=== PATIENT | male | born 1965 | race American Indian/Alaskan Native ===

== ENCOUNTER 2017-01-13 03:19 | Emergency (ER) | payer OTHER ==
[2017-01-13 03:41] VITALS: BMI 37.6
[2017-01-13 03:53] VITALS: BP 132/92; PULSE 109; RESP 18; TEMP 97.5; O2SAT 97
--- NOTE | 2017-01-13 04:02 | ED PDOC ---
Arrival/HPI - General Chief Complaint: Cough, Cold, Congestion Time Seen by Provider: 01/13/17 04:02 Historian: Patient - History of Present Illness Narrative History of Present Illness (Text): 01/13/17 04:02 Ryan Hahn is a 51 year old male who presents to the Emergency department complaining of sinus/nasal congestion with associated rhinorrhea since yesterday morning. Patient denies any fever, chills, chest pain, shortness of breath, nausea, vomiting, headache, dizziness, or any other complaints. Time/Duration: Other (yesterday morning) Symptom Onset: Gradual Symptom Course: Unchanged Activities at Onset: Light Context: Home Past Medical History - Provider Review Nursing Documentation Reviewed: Yes - Cardiac Hx Cardiac Disorders: Yes Hx Hypertension: Yes - Pulmonary Hx Respiratory Disorders: No - Neurological Hx Neurological Disorder: No - HEENT Other/Comment: hx nasal infection - Renal Hx Renal Disorder: No - Endocrine/Metabolic Hx Endocrine Disorders: Yes Other/Comment: pre-diabetic - Hematological/Oncological Hx Blood Disorders: No - Integumentary Hx Dermatological Disorder: No - Musculoskeletal/Rheumatological Hx Musculoskeletal Disorders: No - Gastrointestinal Hx Gastrointestinal Disorders: No - Genitourinary/Gynecological Hx Genitourinary Disorders: No - Psychiatric Hx Psychophysiologic Disorder: No Hx Substance Use: No - Surgical History Other/Comment: cyst taken out at the back - Anesthesia Hx Anesthesia: Yes Hx Anesthesia Reactions: No Hx Malignant Hyperthermia: No Family/Social History - Physician Review Nursing Documentation Reviewed: Yes Family/Social History: Unknown Family HX Smoking Status: Light Smoker < 10 Cigarettes Daily Hx Alcohol Use: Yes Frequency of alcohol use: Socially Hx Substance Use: No Allergies/Home Meds Allergies/Adverse Reactions: Allergies house dust Allergy (Verified 01/13/17 03:47) ITCHING Review of Systems - Physician Review All systems were reviewed & negative as marked: Yes - Review of Systems Constitutional: Normal. absent: Fevers Eyes: Normal ENT: Rhinorrhea, Sinus Congestion Respiratory: Normal. absent: SOB, Cough Cardiovascular: Normal. absent: Chest Pain Gastrointestinal: Normal. absent: Abdominal Pain, Diarrhea, Nausea, Vomiting Genitourinary Male: Normal. absent: Dysuria, Frequency, Hematuria, Urinary Output Changes Musculoskeletal: Normal. absent: Back Pain, Neck Pain Skin: Normal. absent: Rash Neurological: Normal. absent: Headache, Dizziness Endocrine: Normal Hemo/Lymphatic: Normal Psychiatric: Normal Physical Exam Vital Signs Reviewed: Yes Vital Signs Temp Pulse Resp BP Pulse Ox 01/13/17 03:52 97.5 F L 109 H 18 132/92 H 97 Temperature: Afebrile Blood Pressure: Normal Pulse: Regular Respiratory Rate: Normal Appearance: Positive for: Well-Appearing, Non-Toxic, Comfortable Pain Distress: None Mental Status: Positive for: Alert and Oriented X 3 - Systems Exam Head: Present: Atraumatic, Normocephalic, Tenderness (Maxillary sinus tenderness ) Pupils: Present: PERRL Extroacular Muscles: Present: EOMI Conjunctiva: Present: Normal Ears: Present: Normal, NORMAL TM, Normal Canal. No: Erythema, TM Bulging, Fluid , TM Perf Mouth: Present: Moist Mucous Membranes, Normal Tounge Pharnyx: No: ERYTHEMA, EXUDATE, TONSILS ENLARGED, Peritonsilar Swelling, Uvular Deviation, Muffled/Hoarse Voice, Strider, Soft Palate/Uvular Edema Nose (Internal): Present: Rhinorrhea (Nasal congestion/nasal discharge) Neck: Present: Normal Range of Motion Respiratory/Chest: Present: Clear to Auscultation, Good Air Exchange. No: Respiratory Distress, Accessory Muscle Use Cardiovascular: Present: Regular Rate and Rhythm, Normal S1, S2. No: Murmurs Abdomen: Present: Normal Bowel Sounds. No: Tenderness, Distention, Peritoneal Signs Upper Extremity: Present: Normal Inspection. No: Cyanosis, Edema Lower Extremity: Present: Normal Inspection. No: Edema Neurological: Present: GCS=15, CN II-XII Intact, Speech Normal Skin: Present: Warm, Dry, Normal Color. No: Rashes Psychiatric: Present: Alert, Oriented x 3, Normal Insight, Normal Concentration Medical Decision Making ED Course and Treatment: 01/13/17 04:02 Impression: 51 year old male complaining of nasal/sinus congestion and runny nose since yesterday morning. Differential Diagnosis included but are not limited to: sinusitis vs. URI Plan: -- Augmentin -- Sudafed -- Reassess and disposition Progress Notes: 01/13/17 04:35 On re-evaluation, patient feels better and is in no acute distress. Patient in agreement with plan to be discharged home. Patient is stable for discharge. Patient was instructed to follow up with physician or return if symptoms worsen or new concerning symptoms arise. - Medication Orders Current Medication Orders: Discontinued Medications Amoxicillin/Clavulanate Potassium (Augmentin 875 Mg-125 Mg Tab) 1 tab PO ONCE STA PRN Reason: Protocol Stop: 01/13/17 04:36 Last Admin: 01/13/17 04:49 Dose: 1 tab Pseudoephedrine HCl (Sudafed Tab) 30 mg PO ONCE ONE Stop: 01/13/17 04:37 Last Admin: 01/13/17 04:49 Dose: 30 mg - Scribe Statement The provider has reviewed the documentation as recorded by the Neymar Monge Provider Scribe Attestation: All medical record entries made by the Warneribnoemi were at my direction and personally dictated by me. I have reviewed the chart and agree that the record accurately reflects my personal performance of the history, physical exam, medical decision making, and the department course for this patient. I have also personally directed, reviewed, and agree with the discharge instructions and disposition. Disposition/Present on Arrival - Present on Arrival Any Indicators Present on Arrival: No History of DVT/PE: No History of Uncontrolled Diabetes: No Urinary Catheter: No History of Decub. Ulcer: No History Surgical Site Infection Following: None - Disposition Have Diagnosis and Disposition been Completed?: Yes Diagnosis: Sinusitis, URI (upper respiratory infection) Disposition: HOME/ ROUTINE Disposition Time: 04:38 Patient Plan: Discharge Patient Problems: Current Active Problems Problem Status Onset Sinusitis Acute URI (upper respiratory infection) Acute Condition: GOOD Discharge Instructions (ExitCare): Sinusitis (ED), Upper Respiratory Infection (ED) Additional Instructions: Take meds as prescribed/follow up with your doctor this week Prescriptions: Fexofenadine/Pseudoephedrine [Francoise-D 12 Hour Tablet] 1 each PO BID PRN #24 tab.er.12h PRN Reason: Nasal Congestion Amoxicillin/Clavulanate [Augmentin 875 MG-125 MG] 1 tab PO BID #20 tab Forms: [employer] (Fijian)
[2017-01-13] MEDS ORDERED: Amoxicillin-Clav 875-125 mg Tab PO STA (04:35)
== END 2017-01-13 04:59 | disposition home or self-care (01) ==
LOC: ED 03:19
DX: J32.9 Chronic sinusitis, unspecified (principal); J06.9 Acute upper respiratory infection, unspecified; I10 Essential (primary) hypertension; F17.210 Nicotine dependence, cigarettes, uncomplicated